=== PATIENT | male | born 1960 | race African-American/Black ===

== ENCOUNTER → 2019-03-06 | Outpatient (CLI) | payer OTHER ==
--- NOTE | 2019-03-06 16:59 | RAD ---
Examination: 2 views of the bilateral hips HISTORY: History of bilateral hip pain COMPARISON: None available FINDINGS: Severe joint space loss identified in the bilateral hip joints wit moderate to large osteophyte formation identified in the bilateral hip joints. No acute fracture is evident. Examination limited due to patient body habitus. IMPRESSION: Severe degenerative changes bilateral hip joints. Electronically signed by: Chinmay Long MD (03/06/2019 4:56 PM) [id number]
== END | disposition home or self-care (01) ==
LOC: RAD 16:19
PROVIDERS: ATTEND Physician Assistant
DX: M16.0 Bilateral primary osteoarthritis of hip (principal)
CPT/HCPCS: 73502; 73521